=== PATIENT | female | born 1980 | race African-American/Black ===

== ENCOUNTER 2018-04-22 01:20 | Emergency (ER) | payer MEDICAID, OTHER ==
[~2018-04-22] VITALS: Ht 170.2 cm; Wt 97.5 kg
--- NOTE | 2018-04-22 01:26 | NUR ---
pt ambulatory w/ steady gait, c/o midlower pelvic pain w/ heavy VB x 2 wks, taking provera x 10 days for irregular menstrual cycle. AOx4, afebrile w/ resp even & unlabored, denies any HERMAN, no dizziness, no weakness, no N/V/D w/ mild discomfort noted.
--- NOTE | 2018-04-22 02:00 | NUR ---
labs drawn & sent to lab. Awaiting pelvic US.
[2018-04-22 02:11] LABS: BASOPHILS # (AUTO) 0.1 /CMM (0.0-0.2); BASOPHILS % (AUTO) 0.5 % (0.0-2.0); EOSINOPHILS % (AUTO) 2.6 % (0.0-6.0); HEMATOCRIT 38 % (33-45); HEMOGLOBIN 12.4 g/dL (11.5-14.8); LYMPHOCYTES # (AUTO) 3.8 /CMM (0.8-4.8); LYMPHOCYTES % (AUTO) 37.7 % (20.0-44.0); MEAN CORPUSCULAR HGB CONC 33 g/dl (31.0-36.0); MEAN CORPUSCULAR VOLUME 90 fL (82-100); MONOCYTES # (AUTO) 0.6 /CMM (0.1-1.30); MONOCYTES % (AUTO) 6.3 % (2.0-12.0); NEUTROPHILS # (AUTO) 5.3 /CMM (1.8-8.9); NEUTROPHILS % (AUTO) 52.9 % (43.0-81.0); PLATELET COUNT (AUTO) 314 /CMM (150-450); RDW COEFFICIENT OF VARIATION 13.8 (11.5-15.0)
[2018-04-22 02:20] LABS: CALCIUM, SERUM 9.2 mg/dL (8.5-10.1); POTASSIUM 3.8 mmol/L (3.5-5.1)
[2018-04-22 02:21] LABS: INR 0.98 (0.87-1.13)
--- NOTE | 2018-04-22 02:23 | NUR ---
ULTS AT BEDSIDE
[2018-04-22 04:12] LABS: APPEARANCE,URINE TURBID (CLEAR); BILIRUBIN,URINE NEGATIVE (NEGATIVE); BLOOD, URINE 3+ Ery/uL (NEGATIVE); COLOR,URINE BROWN (YELLOW); KETONES,URINE TRACE (NEGATIVE); LEUKOCYTE ESTERASE ,URINE NEGATIVE (NEGATIVE); NITRITE, URINE POSITIVE (NEGATIVE); PROTEIN,URINE 2+ mg/dl (NEGATIVE); UGLUCOSE NEGATIVE (NEGATIVE)
[2018-04-22 04:21] LABS: BACTERIA,URINE Few /HPF (None Seen); RBC,URINE TOO NUMEROUS TO COUN /HPF (0-2); SQUAMOUS EPITHELIAL CELL,UR Few /HPF (None Seen)
--- NOTE | 2018-04-22 04:54 | NUR ---
PT TO CT.
--- NOTE | 2018-04-22 05:05 | NUR ---
PT RETURNED FROM CT.
--- NOTE | 2018-04-22 05:58 | NUR ---
bedside speaking to pt
--- NOTE | 2018-04-22 05:59 | NUR ---
DR. SHOEMAKER SPEAKING TO PT REGARDING RESULTS.
--- NOTE | 2018-04-22 06:10 | NUR ---
Patient discharged to home in stable condition. Written and verbal after care instructions given. Patient verbalizes understanding of instruction. no s/s of distress upon discharge. pt ambulated with steady gait noted
[2018-04-22 06:11] VITALS: BP 130/71
== END 2018-04-22 06:12 | disposition home or self-care (01) ==
LOC: ER 01:40
DX: N93.8 Other specified abnormal uterine and vaginal bleeding (principal); F10.10 Alcohol abuse, uncomplicated; Y90.9 Presence of alcohol in blood, level not specified; F17.200 Nicotine dependence, unspecified, uncomplicated; Z88.0 Allergy status to penicillin; Z88.1 Allergy status to other antibiotic agents; Z98.890 Other specified postprocedural states
CPT/HCPCS: 36415; 72192; 76856; 80048; 81001; 84702; 85025; 85730; 86850; 87086; 99285; A4606; Z7610; 81000-TC